=== PATIENT | female | born 1970 | race Caucasian/White ===

== ENCOUNTER 2023-01-25 15:11 | Outpatient (REF) | payer OTHER, SELFPAY | END 2023-01-25 15:12 | disposition home or self-care (01) | LOC: HO.MAMMO 15:11 | PROVIDERS: PCP Nurse Practitioner Family; Visit Provider Nurse Practitioner Family | DX: Z12.31 Encounter for screening mammogram for malignant neoplasm of breast (principal) | CPT/HCPCS: 77063; 77067 ==

== ENCOUNTER → 2023-01-25 15:15 | Outpatient (BNV) | payer OTHER, SELFPAY | PROVIDERS: PCP Nurse Practitioner Family; Visit Provider Radiology Diagnostic Radiology | DX: Z12.31 Encounter for screening mammogram for malignant neoplasm of breast (principal) | CPT/HCPCS: 77063; 77067 ==

== ENCOUNTER → 2024-02-28 11:30 | Outpatient (BNV) | payer OTHER, SELFPAY | PROVIDERS: PCP Registered Nurse; Visit Provider Internal Medicine | DX: Z12.31 Encounter for screening mammogram for malignant neoplasm of breast (principal) | CPT/HCPCS: 77063; 77067 ==

== ENCOUNTER 2024-02-28 11:32 | Outpatient (REF) | payer OTHER, SELFPAY ==
--- NOTE | ~2024-02-28 | MM_ITS ---
EXAMINATION: MM SCREENING DIGITAL BREAST TOMOSYNTHESIS, BILATERAL CLINICAL INFORMATION: Screening. Asymptomatic. COMPARISON: Mammography: Comparison is made with available priors TECHNIQUE: Digital breast mammography with tomosynthesis is performed in both the craniocaudal and mediolateral oblique views along with computer-aided detection (CAD). FINDINGS: The breasts are heterogeneously dense, which may obscure small masses (ACR BI-RADS breast composition Category c). There are no significant masses, abnormal calcifications, or other abnormalities. MM/MM tomosynthesis screening BI IMPRESSION: No mammographic evidence of malignancy. ASSESSMENT: BI-RADS BI-RADS 1 - Negative RECOMMENDATION: Routine annual mammography screening. 1 year F/U This examination should not preclude the clinical evaluation of a suspicious palpable abnormality. This patient's information was entered into a reminder system with a target due date for their next mammogram. Electronically signed by: Shanta Villavicencio DO 03/12/2024 08:17 PM EDT
== END 2024-02-28 11:33 | disposition home or self-care (01) ==
LOC: HO.MAMMO 11:32
PROVIDERS: PCP Registered Nurse; Visit Provider Registered Nurse
DX: Z12.31 Encounter for screening mammogram for malignant neoplasm of breast (principal)
CPT/HCPCS: 77063; 77067

== ENCOUNTER 2025-02-11 17:52 | Emergency (ER) | payer OTHER, SELFPAY ==
--- NOTE | ~2025-02-11 | XR_ITS ---
CLINICAL HISTORY: CP 1 view chest x-ray Comparison: None provided Findings: No consolidation or effusion. Normal size heart. No acute fracture. IMPRESSION: 1. No acute findings. This document has been electronically signed by: Donato Fuentes MD on 02/11/2025 19:21:28
[2025-02-11 18:21] VITALS: BP 159/103; PULSE 80; RESP 16; TEMP 36.8; O2SAT 98; BMI 22.1
--- NOTE | 2025-02-11 18:31 | ECG_ITS ---
Test Reason : L ARM NUMBNESS Blood Pressure : */* mmHG Vent. Rate : 70 BPM Atrial Rate : 70 BPM P-R Int : 132 ms QRS Dur : 82 ms QT Int : 428 ms P-R-T Axes : 54 36 20 degrees QTcB Int : 462 ms Normal sinus rhythm Nonspecific T wave abnormality Borderline ECG No previous ECGs available Referred By: Generic ED Physician Electronically Signed By: CONNER ALBERTS
[2025-02-11 18:46] VITALS: BP 159/103; PULSE 76; RESP 16; O2SAT 97
--- NOTE | 2025-02-11 18:48 | PC.NURSE ---
Patient is a 54 yo female with a history of HTN on lisinopril who presents with left arm numbness/tingling for the past 2 weeks increasing over the past 3 days. Denies any pain. Family history of a AL at a young age. Placed on the monitoring engineer and NSR noted. Lungs clear bilat. Respirations even and non-labored. Abdomen flat, soft, non-tender with positive bowel sounds. Positive pedal pulses with no edema noted.
--- OUTSIDE RECORDS SUMMARY | 2025-02-11 18:58 | XMS_ITS | Clinical Summary ---
Author Organization [facility] Address [address] [address] Phone Care Team Providers Care Stem Crusher Name Role Phone Shayan Badillo MD Unavailable Chacho Bird PA-C Primary Care Provider [phone] Allergies No known active allergies Medications docosahexaenoic acid/epa (FISH OIL ORAL) Take 1 capsule by mouth daily. Active lisinopril (PRINIVIL,ZESTRI L) 10 MG tabletIndication s:Essential hypertension Take 0.5 tablets (5 mg total) by mouth daily. 90 tablet 1 03/20/20 24 Active progesterone (PROMETRIUM) 100 mg capsule Take 100 mg by mouth daily. Active estradioL (CLIMARA) 0.05 mg/[address] 1 patch onto the skin 2 (two) times a week. Active betamethasone, augmented, (DIPROLENE) 0.05 % ointment Apply topically 2 (two) times a day. 50 g 11/26/19 25 Active levothyroxine (SYNTHROID, LEVOTHROID) 88 MCG tabletIndication s:Hypothyroid TAKE 1 TABLET BY MOUTH EVERY DAY IN THE MORNING 90 tablet 02/03/20 25 Active levothyroxine (SYNTHROID, LEVOTHROID) 88 MCG tabletIndication s:Hypothyroid TAKE 1 TABLET BY MOUTH EVERY MORNING. 90 tablet 10/15/19 25 025 Discontinued Active Problems Problem Noted Date Diagnosed Date Menopause 09/07/2024 Assessment & Plan (09/07/2024 4:51 PM EDT): Patient with a history of hot flashes, irritability, decreased libido, weight gain, and mood swings which have been going on for quite some time. She ended up reaching out to [employer] and obtained a prescription for estradiol patch which she changes weekly and progesterone 100 mg p.o. daily which she states has been doing well and has subsided her symptoms. However she is not had a Pap smear in quite some time therefore I have referred her to [facility] [employer]. She would like to go to the [facility] Psoriasis 09/07/2024 Assessment & Plan (09/07/2024 4:51 PM EDT): Persistent rash which is erythematous with some flaking and plaques on her elbows and coccyx region. Patient has been using a topical cream which has been working well. She states that she will continue to use Nizoral cream twice daily. Patient was advised that if the cream does not work then we can try a different topical or refer to dermatology for possible Biologics. Seasonal allergies 09/07/2024 Assessment & Plan (09/07/2024 4:51 PM EDT): Patient notes a history of seasonal allergies which she takes Claritin as needed. Routine general medical exam ination at a health care facility 09/07/2024 Assessment & Plan (09/07/2024 4:51 PM EDT): In preparation of her upcoming physical we will obtain a CMP, lipid panel, TSH and fasting glucose RUBBER STAMP MAKER referral has been placed for [facility] [employer] she would prefer to go to the [facility] Essential hypertension 06/22/2020 Assessment & Plan (09/07/2024 4:51 PM EDT): Patient with a history of hypertension which is well-controlled on lisinopril 10 mg p.o. daily. Assessment & Plan (03/23/2024 12:17 PM EDT): Well controlled today in office. Continues with lisinopril 5 mg daily, denies side effects or concerns with medication. Assessment & Plan (10/18/2023 2:18 PM EDT): Well controlled today in office. Continue on lisinopril 5 mg. Treatment goals reviewed, <130/80. Hypothyroid 07/25/2017 Assessment & Plan (09/07/2024 4:51 PM EDT): Patient with a history of hypothyroidism who is on levothyroxine 100 mcg p.o. daily. Will obtain a updated TSH level. Assessment & Plan (03/23/2024 12:17 PM EDT): TSH with reflex previously ordered for treatment evaluation. Encouraged to complete Assessment & Plan (10/18/2023 2:19 PM EDT): Last TSH was 0.09 and her dose of levothyroxine was adjusted. She has not had it tested since, TSH with reflex as ordered Resolved Problems Problem Noted Date Diagnosed Date Resolved Date Cyst of left Bartholin's gland 04/08/2019 09/07/2024 Assessment & Plan (04/08/2019 11:36 AM EDT): Essentially asymptomatic. Discussed dx, expectant mgmt vs I&D. Since not abscess and NT on exam, plan for expectant mgmt. F/u prn. Encounters Date Type Department Care Team Description 02/02/2025 Refill [facility] Internal [facility] [address] [place] [id number] Chacho Bird PA-C Medication Refill 11/25/2024 1:30 PM EDT - 11/25/2024 11:59 PM EDT Hospital Encounter [facility] [address] [place] [id number] Chacho Bird PA-C Discharge Disposition: Home or Self Care 11/25/2024 1:00 PM EDT Office Visit [facility] [address] [place] [address] Chacho Bird PA-C Rash and other nonspecific skin eruption (Primary Dx) 11/24/2024 Telephone [facility] [place] [facility] [address] [facility] [place] [place] [phone] Chacho Bird PA-C Appointment from Last 3 Months Immunizations Immunization Administration Dates Next Due COVID-19 (Pre-04/08) Moderna Vaccine, mRNA, PF 02/15/2021,01/18/2021 INFLUENZA, SPLIT VIRUS, TRIVALENT PF 03/20/2024, 02/16/2016 INFLUENZA, SPLIT VIRUS, TRIV ALENT W/ PRESERVATIVE IM 02/28/2012 Influenza Quadrivalent Prese rvative Free IM 03/18/2019,06/30/2018,07/25/2017,2013 Influenza Recombinant Heladio valent Preservative Free IM 06/22/2020 Tdap 06/22/2020 Zoster recombinant 12/28/2022 Family History Medical History Relation Comments Alcohol use disorder Brother No Known Problems Daughter CV disease Father smoker Heart disease Father Hyperlipidemia Father No Known Problems Mother No Known Problems Son 1 No Known Problems Son 2 Relation Status Comments Brother Alive Daughter Alive Father Alive Mother Alive Son 1 Alive Son 2 Alive Social History Tobacco Use Types Packs/Day Years Used Date Smoking Tobacco: Former Cigarettes Q uit: 10/2022 Passive Smoke Exposure: Never Smokeless Tobacco: Never Comments:Off and on since co llege Alcohol Use Standard Drinks/Week Comments Not Currently 0 (1 standard drink = 0.6 oz pur e alcohol) last drink 08/2024 Child or Family Care Answer Date Record ed Do you have problems with on e of the following making it difficult for you to work, study, or receive health care? No 10/11/2023 Education Answer Date Recorded Are you interested in help w ith more adult education (for example, completing high school, GED, job training, learning the Faro[place] language, technical skills, or developing parenting skills)? No 10/11/2023 Are you concerned about learning? Not on file 10/11/2023 No 10/11/2023 Yes 10/11/2023 Food Answer Date Recorded Within the past 6 months we worried whether our food would run out before we got money to buy more. Never True 10/11/2023 Within the past 6 months the food we bought just didn't last and we didn't have enough money to get more. Never True Residential Stability Answer Date Recor ded What is your housing situation today? I have narendra jackson 10/11/2023 How many times have you move d in the past 12 months? Zero (I did not move) 10/11/2023 Paying for Meds Answer Date Recorded Do you have trouble paying for medicines? No 10/11/2023 Paying Utility Bills Answer Date Record ed Do you have trouble paying your heating or elect ricity bill? No 10/11/2023 Transportation Answer Date Recorded Has the lack of transportati on kept you from medical appointments or from getting medications? No 10/11/2023 Unemployment Answer Date Recorded Are you currently unemployed or working on a part-time or temporary basis, and looking for work? No 04/20/2022 Digital Access Answer Date Recorded No 10/11/2023 Yes 10/11/2023 Do you have reliable internet access at home? Ye s 10/11/2023 Do you have a device (e.g., phone, tablet, computer) with a working camera? Yes 10/11/2023 Intimate Partner Violence Answer Date R ecorded Denied Basic Needs Not on file 09/07/2024 In the past 12 months have y ou been in a relationship with a person who hurts, threatens, or tries to control you? No 09/07/2024 Worried food would run out Not on file 09/07 In the past 12 months have y ou been in a relationship with a person who hurts, threatens, or tries to control you? No 09/07/2024 Comments No Sex and Gender Information Value Date Recorded Sex Assigned at Not on file Legal Sex Female 9:32 PM EDT Gender Identity Not on file Sexual Orientation Not on file Occupation Industry Job Start Date Job End Date RN Not on file Not on file Not on file Last Filed Vital Signs Vital Sign Reading Time Taken Comments Blood Pressure 94/60 11/25/2024 1:01 PM EDT Pulse 74 11/25/2024 1:01 PM EDT Temperature 37.3 C (99.2 F) 11/25/2024 1:01 PM EDT Respiratory Rate 16 09/07/2024 3:28 PM EDT Oxygen Saturation 98% 11/25/2024 1:01 PM EDT Inhaled Oxygen Concentration - - Weight 54.2 kg (119 lb 6.4 oz) 11/25/2024 1:01 P M EDT Height 156.2 cm (5' 1.5 ) 11/25/2024 1:01 PM EDT Body Mass Index 22.2 11/25/2024 1:01 PM EDT Plan of Treatment Upcoming Encounters Date Type Department Care Team (Late st Contact Info) Description 04/12/2025 3:20 PM EDT Office Visit [facility] Internal Medicine [address] [place] [address] Chacho Bird PA-C [address] [place] [address] [email or web address] Health Maintenance Due Date Last Done Comments SMOKING Hx and SMOKELESS TOBACCO SCREENING 1985 COLOGUARD 2017 FIT TEST 2017 FOBT 2017 SIGMOIDOSCOPY 2017 VIRTUAL COLONOSCOPY 2017 PNEUMOCOCCAL VACCINES (50+ years) (1 of 1 - PCV) 2022 ZOSTER VACCINES (2 of 2) 02/22/2023 12/28/2022 COVID-19 VACCINE ( season) 2024 09/04/2021, 02/15/2021, 01/18/2021 BLOOD PRESSURE 05/27/2025 11/25/2024 DEPRESSION SCREENING 09/07/2025 09/07/2024 CREATININE LEVEL 09/11/2025 09/11/2024, , 02/15/2021, Additional history exists POTASSIUM LEVEL 09/11/2025 09/11/2024, 12/15, 02/15/2021, Additional history exists TSH LEVEL 09/11/2025 09/11/2024, 050 08/2023, 08/02/2023, Additional history exists PAP SMEAR 12/28/2025 12/28/2022, 020 01/2018, 07/25/2017 MAMMOGRAM 02/27/2026 02/28/2024, 050 08/2023, 01/25/2023, Additional history exists LIPID PANEL 09/11/2029 09/11/2024, 08/16, 09/11/2024, Additional history exists Adult Td,Tdap Booster 06/22/2030 06/22/2020 COLONOSCOPY 06/07/2033 06/07/2023 COLORECTAL CANCER SCREENING 06/07/2033 HIV ONE-TIME SCREENING (18-65 YEARS) Completed 06/22/2020 HEPATITIS C SCREENING Completed 12/28/2022 HEPATITIS A VACCINES Aged Out No long er eligible based on patient's age to complete this topic HIB VACCINES Aged Out No longer eligi ble based on patient's age to complete this topic MENINGOCOCCAL VACCINES (ACWY) Aged Out No longer eligible based on patient's age to complete this topic MENINGOCOCCAL VACCINES (B) Aged Out N o longer eligible based on patient's age to complete this topic Medical Devices Not on file Procedures Procedure Name Priority Date/Time Associated Diagnosis Comments LYME SCREEN WITH REFLEX TO WESTERN BLOT, BLOOD Routine 11/25/2024 1:31 PM EDT Rash and other nonspecific skin eruption OUTSIDE HDL Routine 09/11/2024 OUTSIDE TSH LEVEL Routine 09/11/2024 OUTSIDE POTASSIUM LEVEL Routine 09/11/2024 OUTSIDE SERUM CREATININE LEVEL Routine 09/11/2024 MAMMOGRAPHY Routine 02/28/2024 3:52 PM EDT COLONOSCOPY FOR RESULT ENTRY ONLY Routine 06/07/2023 2:26 PM EST HEPATITIS C ANTIBODY, QUALITATIVE Routine 12/28/2022 2:32 PM EDT Need for hepatitis C screening test PAP TEST Routine 12/28/2022 12:00 AM EDT from Last 3 Months or Most Recently Relevant to Health Maintenance Results * Lyme Screen with Reflex to Immunoblot, Blood (11/25/2024 1:31 PM EDT) Lyme AB IgG Negative Negative [facility] Lyme AB IgM Negative Negative [facility] Blood 11/25/2024 1:31 PM EDT 11/25/2024 1:32 PM EDT Result [facility] Chacho Bird PA-C LAB BLOOD ORDERABLES Final Re sult [facility] [address] [place] [address] * (ABNORMAL) Outside TSH Level (09/11/2024) TSH - External 0.351(A) 0.5 - 5 uIU/L Result [facility] Provider LAB BLOOD ORDERABLES Aida l Result * Outside Potassium Level (09/11/2024) Potassium level - External 4.7 3.4 - 5.0 mmol/L Result [facility] Provider LAB BLOOD ORDERABLES Aida l Result * (ABNORMAL) Outside Serum Creatinine Level (09/11/2024) Creatinine, serum - External 0.72(A) 0.8 - 1.3 mg/dL Result [facility] Provider LAB BLOOD ORDERABLES Aida l Result * (ABNORMAL) Outside HDL (09/11/2024) HDL - External 96(A) 40 - 80 mg/dL Result [facility] Provider LAB BLOOD ORDERABLES Aida l Result * HM MAMMOGRAPHY FOR RESULT ENTRY ONLY (02/28/2024 3:52 PM EDT) Result [facility] Provider HEALTH MAINTENANCE Edited Result - Final * HM COLONOSCOPY FOR RESULT ENTRY ONLY (06/07/2023 2:26 PM EST) Result [facility] Provider HEALTH MAINTENANCE Final Result * Hepatitis C antibody, qualitative (12/28/2022 2:32 PM EDT) HCV NON-REACTIV E NON-REACTI VE [facility] Blood 12/28/2022 2:32 PM EDT 12/28/2022 2:37 PM EDT Bernadine Santana NP LAB BLOOD ORDERABLES Final Resu lt [address] [address] * Pap Test (12/28/2022 12:00 AM EDT) 12/28/2022 12/31/2022 8:0 1 AM EDT Narrative SEE NARRATIVE - 01/02/2023 2:26 PM EDT [address] [address] Battery Repairer: Helena Carbajal MD [employer] Cytology Report FINAL DIAGNOSIS A. PAP SMEAR (SUREPATH) CE: SPECIMEN ADEQUACY: Satisfactory for evaluation; transformation zone present. INTERPRETATION: NEGATIVE FOR INTRAEPITHELIAL LESION OR MALIGNANCY. Electronically Signed Out By: TOÑITO Son(ASCP) The Pap test is a screening test primarily for squamous cancers and precursors and has associated false-negative and false-positive results. New technologies such as liquid-based preparations may decrease but will not eliminate all false-negative results. Regular sampling and follow-up of unexplained clinical signs and symptoms are recommended to minimize false negative results. PROCEDURES/ADDENDA HPV Testing (Requested) Ordered Date: 12/31/2022 A. PAP SMEAR (SUREPATH) CE: Human Papilloma Virus Test NEGATIVE for high-risk Human Papilloma Virus types 16, 18, 45 and the Other high risk probe set (Includes 31, 33, 35, 39, 51, 52, 56, 58, 59, 66, 68) Note: Testing performed by [employer] [facility] HR-HPV analysis. Clinical correlation is advised. This HPV test was performed at [facility], [address] [place] [address]. This test has been FDA approved for [facility] cervical cytology specimens. The accuracy and precision of this test for all other specimen sources has been verified in the Cytopathology Laboratory of the [facility] and has not been cleared or approved by the U.S. Food and Drug Administration. Clinical correlation is advised. CLINICAL HISTORY Date of Last Menstrual Period: MAR 2022 Other Clinical Conditions: Screening Pap SPECIMEN SOURCE A: PAP SMEAR ([facility]PATH) CE Patient Name: LELIA AMBROCIO : 1970 (Age: 52) Sex: F Institution: [facility] Location: [facility] Date of Collection: 12/28/2022 Date of Reported: 01/02/2023 14:26 Results to: Bernadine Santana MSN, BSN Bernadine Santana NP CYTOLOGY ORDERABLES Final Resul t SEE NARRATIVE from Last 3 Months or Most Recently Relevant to Health Maintenance Insurance [facility] [employer] DIRECT [facility] [employer] DIRECT [facility] PLANS DIRECT [facility] DIRECT [facility] [place] [address] [place] [address] [place] [address] DIRECT [facility] DIRECT [facility] Fixed - Parking Tickets PLANS DIRECT Care Teams Stem Crusher Relationship Specialty Start Date End Date Chacho Bird PA-C [address] [place] [id number] [email or web address] PCP - General Physician Health Information Tech 08/10/24 Shayan Badillo MD [address] [place] [address] [place] [address] Ophthalmology 12/21/22 Additional Source Comments The information contained in this document represents components of the legal health record. It is not the complete legal health record.[facility]
[2025-02-11 18:59] LABS: MANUAL DIFF FLAG NO
[2025-02-11 19:01] LABS: Hematocrit 37.4 % (37.0-47.0); Hemoglobin 13.3 g/dl (12.0-16.0); Imm Gran Abs Auto 0.01 X10*3/uL (0.00-0.03); Imm Gran Pct Auto 0.1 % (0.0-0.4); Lymphocytes Absolute Auto 2.0 X10*3/uL (1.2-4.9); Mean Corpuscular HGB Conc 35.6 g/dl (31.0-35.0); Mean Corpuscular Hemoglobin 34.8 pg (27.0-33.0); Mean Corpuscular Volume 97.9 fL (80.0-98.0); NRBC Abs Auto 0.000 X10*3/uL (0.0-0.012); NRBC Pct Auto 0.0 /100WBC (0.0-0.2); Platelet Count 206 X10*3/uL (160-400); Red Blood Count 3.82 X10*6/uL (4.20-5.50); White Blood Count 7.5 X10*3/uL (4.8-10.8)
[2025-02-11 19:17] VITALS: BP 138/76; PULSE 63; RESP 20; O2SAT 98
[2025-02-11 19:18] LABS: Alanine Aminotransferase 19 U/L (0-31); Albumin Level 4.8 g/dL (3.5-5.0); Alkaline Phosphatase 53 U/L (39-117); Anion Gap 15 (12-20); Aspartate Amino Transferase 28 U/L (5-31); Blood Urea Nitrogen 14 mg/dL (9-16); Calcium 9.3 mg/dL (8.4-10.2); Carbon Dioxide 26 mmol/L (22-29); Chloride 99 mmol/L (96-108); Creatinine Clr Calc Pharmacy 78.8; Estimated Glomerular Filt Rate > 60; Magnesium 1.7 mg/dL (1.6-2.6); Potassium 3.7 mmol/L (3.3-5.1); Sodium 136 mmol/L (135-145); Total Protein 7.1 g/dL (6.5-8.0)
[2025-02-11 19:19] LABS: IDNOW Serial# 6674DD1D
[2025-02-11 19:20] LABS: COVID-19 Test Negative (Negative)
[2025-02-11 19:24] LABS: IDNOW Serial# 152EDE1D; Influenza B2 Negative (Negative)
[2025-02-11 19:27] LABS: Troponin-I High Sensitivity 8.8 ng/L (<3.5-17.0)
[2025-02-11 19:30] LABS: Appearance Urine Clear; Glucose Urine UA Negative (Negative); PH 5.5 (5.0-9.0); Specific Gravity - Urine 1.010 (1.005-1.025)
--- NOTE | 2025-02-11 21:59 | ED_ITS ---
HPI - General Adult General Chief complaint: Extremity Problem Stated complaint: left arm numbness and tingling Time Seen by Provider: 02/11/25 21:59 History of Present Illness ED Provider: Helen LOPEZ narrative: The patient is a 54-year-old woman who has been experiencing intermittent pain and numbness in her left arm for the last several days. She says that she has a family history of coronary disease and she worried that the symptoms she has been experiencing in her left arm could be an anginal equivalent. The patient says that she has been playing pickleball recently. She is right- handed but has often been using the pickleball racquet in her left hand. She speculates that perhaps she irritated something in her left arm and that this could be causing her pain instead but she does not feel that she has any clearly reproducible discomfort in the left arm when she checks herself. She has not really had any chest pain. She says that perhaps she feels some worsening shortness of breath recently when playing pickleball but she does not really relate any sense of shortness of breath to the episodes of numbness or discomfort in the left arm. She says that she has had Related Data Allergies Allergy/AdvReac Type Severity Reaction Status Date / Time No Known Allergies Allergy Verified 02/11/25 18:24 Review of Systems 2 Review of Systems: Yes all other systems are reviewed and are negative [facility] Social History Social History Smoked in Last 30 Days: No Use of substances other than those prescribed or required for medical reasons: No Advance Directives: No Advance Directives Information Provided: No Physical Exam ED Vital Signs: Vital Signs - 24 hr 02/11/25 18:21 02/11/25 18:46 02/11/25 19:17 Temperature 98.2 F Pulse Rate 80 76 63 Respiratory Rate 16 16 20 Blood Pressure 159/103 H 159/103 H 138/76 Pulse Oximetry 98 97 98 Oxygen Delivery Method Room Air Room Air Room Air 02/11/25 22:12 02/12/25 00:03 02/12/25 00:05 Temperature 98.4 F 98.1 F 98.1 F Pulse Rate 74 74 74 Respiratory Rate 16 18 18 Blood Pressure 118/70 132/92 H 132/92 H Pulse Oximetry 100 97 97 Oxygen Delivery Method Room Air Room Air Room Air BMI result Body Mass Index 22.1 Const Other: The patient is a slim 54-year-old woman who was awake and alert, pleasant and cooperative. She does not appear in distress or acutely ill at all. She looks quite well. Orientation/consciousness: patient oriented x3 HENND Other: The face is symmetrical. ?Mucous membranes moist. Eyes Other: Pupils are round equal, conjunctivae are clear, extraocular movements intact Neck Neck: Yes normal visual inspection, Yes full ROM and Yes no JVD Resp Effort & Inspection: normal respiratory effort Auscultation: clear to auscultation bilaterally Cardio Rate: regular rate Rhythm: regular rhythm Heart sounds: S1 normal heart sound present and S2 normal heart sound present GI Other: Abdomen is soft and nontender Skin Other: The skin is dry and unremarkable Neuro General: patient oriented x3, gait normal, tone normal, moves all extremities, no focal motor deficits and CN's II-XI intact bilaterally Extrem Other: The patient's left arm has no obvious abnormalities to inspection or palpation. Good range of motion of all the joints of the arm. No reproducible tenderness. Medical Decision Making Medical Decision Making MDM Narrative: The patient is a 54-year-old female who presents for evaluation of intermittent episodes of left arm pain she has had for the last few days. She is worried that this left arm pain might be some kind of an anginal equivalent. She reports her father having early coronary disease although her father was a smoker and she is not. An EKG shows some nonspecific T-wave abnormalities. No old EKGs available for comparison. She has two normal troponins however. Therefore my suspicion that the left arm pain is an anginal equivalent is quite low. I think this is not an acute coronary syndrome. This is probably left arm pain related to her athletic activities recently. I think she may be discharged to resume normal activities and to follow up with her regular primary care provider. She should return if she feels significantly worse. Lab Data 02/11/25 18:54 02/11/25 18:54 Labs: Lab Results 02/11/25 02/11/25 02/11/25 Range/Units 18:54 19:17 22:16 WBC 7.5 (4.8-10.8) X10*3/uL RBC 3.82 L (4.20-5.50) X10*6/uL Hgb 13.3 (12.0-16.0) g/dl Hct 37.4 (37.0-47.0) % MCV 97.9 (80.0-98.0) fL MCH 34.8 H (27.0-33.0) pg MCHC 35.6 H (31.0-35.0) g/dl RDW 12.8 (11.0-16.0) % Plt Count 206 (160-400) X10*3/uL MPV 7.9 L (9.4-12.3) fL Immature Gran % (Auto) 0.1 (0.0-0.4) % Neut % (Auto) 58.2 (45-73) % Lymph % (Auto) 26.3 (20-40) % Holmes % (Auto) 12.1 H (2-11) % Eos % (Auto) 2.8 (0-4) % Baso % (Auto) 0.5 (0-2) % Lymph # (Auto) 2.0 (1.2-4.9) X10*3/uL Holmes # (Auto) 0.9 (0.1-1.2) X10*3/uL Eos # (Auto) 0.2 (0.0-0.4) X10*3/uL Baso # (Auto) 0.0 (0.0-0.2) X10*3/uL Abs Immat Gran (auto) 0.01 (0.00-0.03) X10*3/uL Absolute Neuts (auto) 4.4 (2.0-8.3) x10*3/uL Absolute Nucleated RBC 0.000 (0.0-0.012) X10*3/uL Nucleated RBC % (auto) 0.0 (0.0-0.2) /100WBC Sodium 136 (135-145) mmol/L Potassium 3.7 (3.3-5.1) mmol/L Chloride 99 (96-108) mmol/L Carbon Dioxide 26 (22-29) mmol/L Anion Gap 15 (12-20) BUN 14 (9-16) mg/dL Creatinine 0.66 (0.5-1.4) mg/dL Estim Creat Clear Calc 78.8 Estimated GFR > 60 Random Glucose 95 (60-115) mg/dL Calcium 9.3 (8.4-10.2) mg/dL Magnesium 1.7 (1.6-2.6) mg/dL Total Bilirubin 0.5 (0.0-1.0) mg/dL AST 28 (5-31) U/L ALT 19 (0-31) U/L Alkaline Phosphatase 53 (39-117) U/L Troponin I High Sens 8.8 5.1 (<3.5-17.0) ng/L Total Protein 7.1 (6.5-8.0) g/dL Albumin 4.8 (3.5-5.0) g/dL Urine Color Yellow Urine Appearance Clear Urine pH 5.5 (5.0-9.0) Ur Specific [place] 1.010 (1.005-1.025) Urine Protein Negative (Neg-Trace) mg/dL Urine Glucose (UA) Negative (Negative) mg/dL Urine Ketones Negative (Negative) mg/dL Urine Blood Negative (Negative) Urine Nitrite Negative (Negative) Ur Leukocyte Esterase Negative (Negative) Urine RBC 0-2 (0-2) /HPF Urine WBC 0-5 (0-5) /HPF Ur Squamous Epith Cells 0-2 (0-2) /HPF Urine Bacteria None Seen (None Seen) Hyaline Casts 0-2 (0-2) /LPF COVID-19 (CASEY) Negative (Negative) COVID-19 Clin Com See Note Influenza Type A (MARTIN) Negative (Negative) Influenza Type B (MARTIN) Negative (Negative) Influenza A & B Note See Note Independent Interpretation I performed an independent interpretation of an: EKG Interpretation: EKG at 18:49 shows normal sinus rhythm at 70 beats per minute. Nonspecific T- wave abnormalities are present. No old EKGs available for comparison. Discharge Plan Discharge Clinical Impression: Pain and numbness of left upper extremity Patient Disposition: Home, Self-Care Additional Instructions: I think your testing today indicates that it is very unlikely that your symptoms represent any problem with your heart. I think you may participate in pickleball although I think I would rest your left arm. Nevertheless please plan on making a follow up appointment with your primary care provider. If at any point you feel significantly worse please return to the emergency department for further investigations. Referrals: Chacho Bird PA-C [Physician Conveyor Belt Operator, Internal Medicine] Interventions: ED Discharge Assessment Last Done: 02/12/25 00:05 Discharge Date/Time: 02/12/25 00:06 Print Language: Uzbek
[2025-02-11 22:12] VITALS: BP 118/70; PULSE 74; RESP 16; TEMP 36.9; O2SAT 100
[2025-02-11 22:42] LABS: Troponin-I High Sensitivity 5.1 ng/L (<3.5-17.0)
[2025-02-12 00:03] VITALS: BP 132/92; PULSE 74; RESP 18; TEMP 36.7; O2SAT 97
[2025-02-12 00:05] VITALS: BP 132/92; PULSE 74; RESP 18; TEMP 36.7; O2SAT 97
== END 2025-02-12 00:06 | disposition home or self-care (01) ==
PROVIDERS: Emergency Provider Emergency Medicine
DX: M79.602 Pain in left arm (principal); R20.0 Anesthesia of skin; R07.89 Other chest pain; R06.02 Shortness of breath; R94.31 Abnormal electrocardiogram [ECG] [EKG]; Z03.818 Encounter for observation for suspected exposure to other biological agents ruled out; Z79.899 Other long term (current) drug therapy
CPT/HCPCS: 36415; 71045; 80053; 81001; 83735; 84484; 85025; 87502; 87635; 93005; 99284; 99285

== ENCOUNTER → 2025-02-11 18:02 | Outpatient (BNV) | payer OTHER, SELFPAY | PROVIDERS: Visit Provider Student in an Organized Health Care Education/Training Program | DX: R07.9 Chest pain, unspecified (principal) | CPT/HCPCS: 71045 ==

== ENCOUNTER → 2025-02-11 18:31 | Outpatient (BNV) | payer OTHER, SELFPAY | PROVIDERS: Emergency Provider Emergency Medicine; Visit Provider Internal Medicine | DX: R20.0 Anesthesia of skin (principal) | CPT/HCPCS: 93010 ==